=== PATIENT | female | born 1935 | race Caucasian/White ===

== ENCOUNTER → 2017-09-29 | Outpatient (CLI) | payer OTHER ==
[~2017-09-29] MED LIST: CHOL2000 PO; CYAN1TAB29 PO; DIPH25CA61 PO; ESTR1TAB15 PO; GABA100C PO; IRON PO; LEVO200T5 PO; LIOT25TA3 PO; MOME17SP INH; MULT-658 PO; OMEP-110 PO; POTASSIUM PO; SUPER B PO; TRIGOSAMINE PO; VITAMIN C PO
== END | disposition home or self-care (01) ==
LOC: CFH 12:02
PROVIDERS: ATTEND Family Medicine
DX: N63.20 Unspecified lump in the left breast, unspecified quadrant (principal); R92.8 Other abnormal and inconclusive findings on diagnostic imaging of breast
CPT/HCPCS: 77066

== ENCOUNTER → 2018-04-06 | Outpatient (CLI) | payer OTHER ==
[~2018-04-06] MED LIST changes: +OMNIPAQUE 350 MG/ML, 100ML BOTTLE ONE
== END | disposition home or self-care (01) ==
LOC: CFH 11:48
PROVIDERS: ATTEND Internal Medicine Gastroenterology
DX: K62.3 Rectal prolapse (principal); K57.30 Diverticulosis of large intestine without perforation or abscess without bleeding; K76.0 Fatty (change of) liver, not elsewhere classified
CPT/HCPCS: 74177; Q9967

== ENCOUNTER 2018-08-09 19:17 | Inpatient (IN) | payer MEDICARE, OTHER ==
[~2018-08-09] VITALS: Ht 165.1 cm; Wt 69.7 kg
[~2018-08-09 19:17] MED LIST changes: -OMNIPAQUE 350 MG/ML, 100ML BOTTLE ONE
--- NOTE | 2018-08-09 19:34 | NUR ---
PT BIB [facility] C/O SYNCOPAL EPISODE TONIGHT. MULTIPLE SYNCOPES NOTED W/ [facility] WITNESSING ONE. PT PRESENTS TO ED W/ MULTIPLE LARGE CLOTS IN PANTS AND FRESH BRIGHT RED APPEARING BLOOD PRESENT. PT CLEANED AND PLACED ON FRESH CHUX. PT STATES FEELING "A BIT LIGHT HEADED". STATES HEAD TRAUMA FROM [facility] W/ A SMALL LAC TO BACK OF HEAD. NEURO INTACT. PERRLA. VSS. BP MILDLY LOW. ALL MONITORING APPLIED. CALL LIGHT WITHIN REACH. FAMILY AT BEDSIDE.
[2018-08-09] MEDS ORDERED: SODIUM CHLORIDE 0.9% 1,000ML IVBOLUS ONE (20:00)
[2018-08-09] MEDS ORDERED: SODIUM CHLORIDE FLUSH 10ML SYR IVF ONE (20:00)
[2018-08-09] MEDS ORDERED: LIDOCAINE 1%, 10ML INFIL ONE (20:00)
[2018-08-09 20:30] LABS: BASOPHILS # (AUTO) 0.04 x10^3/uL (0-0.1); BASOPHILS % (AUTO) 0 % (0-1); EOSINOPHILS # (AUTO) 0.17 x10^3/uL (0-0.4); EOSINOPHILS % (AUTO) 2 % (1-7); LYMPHOCYTES # (AUTO) 1.14 x10^3/uL (1-3.4); LYMPHOCYTES % (AUTO) 12 % (22-44); MD NO; MEAN CORPUSCULAR HEMOGLOBIN 26.6 pg (27.0-34.8); MEAN CORPUSCULAR HGB CONC 31.7 g/dL (32.4-35.8); MEAN CORPUSCULAR VOLUME 83.9 fL (80-100); MEAN PLATELET VOLUME 7.3 fL (7.4-10.4); MONOCYTES # (AUTO) 0.88 x10^3/uL (0.2-0.8); MONOCYTES % (AUTO) 9 % (2-9); NEUTROPHILS # (AUTO) 7.59 x10^3/uL (1.8-6.8); NEUTROPHILS % (AUTO) 77 % (42-75); PLATELET COUNT 264 x10^3/uL (130-400); RED BLOOD COUNT 3.32 x10^6/uL (3.82-5.3); RED CELL DISTRIBUTION WIDTH 17.7 % (9.6-15.2)
[2018-08-09 20:38] LABS: INTERNATIONAL NORMALIZED RATIO 1.02 (0.93-1.1); PROTHROMBIN TIME 10.8 Seconds (9.6-11.5)
[2018-08-09 20:39] LABS: ALANINE AMINOTRANSFERASE 17 U/L (12-78); ANION GAP 9 mmol/L (5-15); CALCIUM 7.7 mg/dL (8.5-10.1); CHLORIDE 110 mmol/L (98-107); CREATININE 0.69 mg/dL (0.55-1.02)
[2018-08-09 20:41] LABS: ALKALINE PHOSPHATASE 63 U/L (45-117); BILIRUBIN,TOTAL 0.1 mg/dL (0.2-1.0); TOTAL PROTEIN 6.2 g/dL (6.4-8.2)
--- NOTE | 2018-08-09 21:04 | NUR ---
VITALS CONTINUE TO STAY STABLE. NADN. AWAITING RESULTS. FAMILY AT BEDSIDE. CALL LIGHT WITHIN REACH. SKIN STAPLER AT BEDSIDE PER PA REQUEST.
[2018-08-09] MEDS ORDERED: OMNIPAQUE 350 MG/ML, 100ML BOTTLE ONE (21:09)
--- NOTE | 2018-08-09 21:44 | NUR ---
PT AMB TO BEDSIDE COMMODE W/ STEADY GAIT W/ 1 PERSON ASSIST. FAMILY AT BEDSIDE. NADN. CALL LIGHT WITHIN REACH. PT UP FOR RECHECK.
--- NOTE | 2018-08-09 21:52 | NUR ---
NO NEW BLOOD NOTED ON FRESH KRISS PADS.
[2018-08-09] MEDS ORDERED: ONDANSETRON 2MG/ML, 2ML IVPush PRN (22:30)
[2018-08-09] MEDS ORDERED: SODIUM CHLORIDE 0.9% 1,000 ML IV SCH (23:02)
[2018-08-09 23:10] VITALS: BP 136/73
[2018-08-09] MEDS ORDERED: hydrALAzine 20 MG/ML, 1ML IVPush PRN (23:30)
[2018-08-09] MEDS ORDERED: LIDODERM 5% PATCH TD PRN (23:30)
[2018-08-09 23:50] LABS: MICROSCOPIC AUTO
[2018-08-09 23:51] LABS: CULTURE INDICATED? YES
[2018-08-10 01:30] VITALS: BP 127/69
[2018-08-10 07:38] VITALS: BP 132/72
[2018-08-10] MEDS ORDERED: FERROUS SULFATE 325 MG TABLET PO SCH (09:00)
[2018-08-10] MEDS: GABAPENTIN 100 MG CAPSULE PO SCH (09:34)
[2018-08-10] MEDS: ESTRADIOL 1 MG TABLET PO SCH (09:34)
[2018-08-10] MEDS: LEVOTHYROXINE 200 MCG TABLET PO SCH (09:34)
[2018-08-10] MEDS: D5%-0.45% NACL 1,000 ML IV SCH ×2 (09:35→19:58)
[2018-08-10] MEDS ORDERED: MOVIPREP POWDER 1 PREP KIT PO ONE (10:30)
[2018-08-10] MEDS: ACETAMINOPHEN 325 MG TABLET PO PRN ×2 (12:20→18:17)
[2018-08-10] MEDS: ONDANSETRON 2MG/ML, 2ML IVPush PRN ×2 (12:53→19:57)
[2018-08-10 13:09] VITALS: BP 129/74
[2018-08-10 18:45] VITALS: BP 125/69
[2018-08-11 01:39] VITALS: BP 124/85
[2018-08-11] MEDS: ACETAMINOPHEN 325 MG TABLET PO PRN ×3 (02:06→16:54)
[2018-08-11 05:31] LABS: BASOPHILS # (AUTO) 0.07 x10^3/uL (0-0.1); BASOPHILS % (AUTO) 1 % (0-1); EOSINOPHILS # (AUTO) 0.26 x10^3/uL (0-0.4); EOSINOPHILS % (AUTO) 5 % (1-7); LYMPHOCYTES # (AUTO) 0.99 x10^3/uL (1-3.4); LYMPHOCYTES % (AUTO) 19 % (22-44); MD NO; MEAN CORPUSCULAR HEMOGLOBIN 26.2 pg (27.0-34.8); MEAN CORPUSCULAR HGB CONC 31.6 g/dL (32.4-35.8); MEAN CORPUSCULAR VOLUME 83.2 fL (80-100); MEAN PLATELET VOLUME 7.8 fL (7.4-10.4); MONOCYTES # (AUTO) 0.63 x10^3/uL (0.2-0.8); MONOCYTES % (AUTO) 12 % (2-9); NEUTROPHILS # (AUTO) 3.22 x10^3/uL (1.8-6.8); NEUTROPHILS % (AUTO) 62 % (42-75); PLATELET COUNT 263 x10^3/uL (130-400); RED BLOOD COUNT 3.12 x10^6/uL (3.82-5.3); RED CELL DISTRIBUTION WIDTH 18.1 % (9.6-15.2)
[2018-08-11 05:40] LABS: ALBUMIN 2.9 g/dL (3.4-5.0); ANION GAP 6 mmol/L (5-15); CALCIUM 7.8 mg/dL (8.5-10.1); CHLORIDE 113 mmol/L (98-107); CREATININE 0.62 mg/dL (0.55-1.02)
[2018-08-11] MEDS: D5%-0.45% NACL 1,000 ML IV SCH (05:44)
[2018-08-11 07:10] VITALS: BP 126/79
[2018-08-11] MEDS ORDERED: MAGNESIUM SULFATE PMX 2GM/50ML 50 ML IV ONE (08:30)
[2018-08-11] MEDS ORDERED: LABETALOL 5MG/ML, 20ML IV PRN (09:00)
[2018-08-11] MEDS ORDERED: hydrALAzine 20 MG/ML, 1ML IV PRN (09:00)
[2018-08-11] MEDS ORDERED: PROPOFOL 10 MG/ML, 50ML ONE (10:34)
[2018-08-11] MEDS: CEFTRIAXONE PMX 1GM/50ML 50 ML IV SCH (10:45)
[2018-08-11] MEDS: SODIUM CHLORIDE 0.45% 1,000 ML IV SCH ×2 (11:49→21:30)
[2018-08-11] MEDS: ESTRADIOL 1 MG TABLET PO SCH (11:50)
[2018-08-11] MEDS: LEVOTHYROXINE 200 MCG TABLET PO SCH (11:50)
[2018-08-11] MEDS: GABAPENTIN 100 MG CAPSULE PO SCH (11:50)
[2018-08-11] MEDS: NEUTRA PHOS K 250 MG TABLET PO SCH ×3 (11:50→20:45)
[2018-08-11 14:02] VITALS: BP 129/82
[2018-08-11 18:38] VITALS: BP 102/58
[2018-08-12 00:16] VITALS: BP 110/64
[2018-08-12] MEDS: SODIUM CHLORIDE 0.45% 1,000 ML IV SCH (03:56)
[2018-08-12] MEDS: ACETAMINOPHEN 325 MG TABLET PO PRN ×3 (04:32→21:09)
[2018-08-12 05:49] LABS: BASOPHILS # (AUTO) 0.07 x10^3/uL (0-0.1); BASOPHILS % (AUTO) 1 % (0-1); EOSINOPHILS # (AUTO) 0.38 x10^3/uL (0-0.4); EOSINOPHILS % (AUTO) 7 % (1-7); LYMPHOCYTES # (AUTO) 1.16 x10^3/uL (1-3.4); LYMPHOCYTES % (AUTO) 20 % (22-44); MD NO; MEAN CORPUSCULAR HGB CONC 31.3 g/dL (32.4-35.8); MEAN CORPUSCULAR VOLUME 82.8 fL (80-100); MEAN PLATELET VOLUME 7.8 fL (7.4-10.4); MONOCYTES # (AUTO) 0.62 x10^3/uL (0.2-0.8); MONOCYTES % (AUTO) 11 % (2-9); NEUTROPHILS # (AUTO) 3.51 x10^3/uL (1.8-6.8); NEUTROPHILS % (AUTO) 61 % (42-75); PLATELET COUNT 275 x10^3/uL (130-400); RED CELL DISTRIBUTION WIDTH 17.8 % (9.6-15.2)
[2018-08-12 05:58] LABS: CHLORIDE 110 mmol/L (98-107)
[2018-08-12 06:43] LABS: ALANINE AMINOTRANSFERASE 17 U/L (12-78); ALBUMIN 2.7 g/dL (3.4-5.0); ALKALINE PHOSPHATASE 54 U/L (45-117); ANION GAP 7 mmol/L (5-15); BILIRUBIN,TOTAL 0.3 mg/dL (0.2-1.0); CALCIUM 7.7 mg/dL (8.5-10.1); CREATININE 0.53 mg/dL (0.55-1.02); FREE T4 (FREE THYROXINE) 1.14 ng/dL (0.76-1.46); THYROID STIMULATING HORMONE 0.466 mIU/L (0.358-3.740); TOTAL PROTEIN 5.9 g/dL (6.4-8.2)
[2018-08-12 07:36] VITALS: BP 121/70
[2018-08-12] MEDS: GABAPENTIN 100 MG CAPSULE PO SCH (08:35)
[2018-08-12] MEDS: LEVOTHYROXINE 200 MCG TABLET PO SCH (08:35)
[2018-08-12] MEDS: ESTRADIOL 1 MG TABLET PO SCH (08:35)
[2018-08-12] MEDS: CEFTRIAXONE PMX 1GM/50ML 50 ML IV SCH (08:37)
[2018-08-12 14:40] VITALS: BP 126/73
[2018-08-12 18:40] VITALS: BP 116/65
[2018-08-13 01:15] VITALS: BP 116/74
[2018-08-13] MEDS: ACETAMINOPHEN 325 MG TABLET PO PRN ×4 (01:54→20:10)
[2018-08-13 05:54] LABS: BASOPHILS # (AUTO) 0.07 x10^3/uL (0-0.1); BASOPHILS % (AUTO) 1 % (0-1); EOSINOPHILS # (AUTO) 0.46 x10^3/uL (0-0.4); EOSINOPHILS % (AUTO) 9 % (1-7); LYMPHOCYTES % (AUTO) 30 % (22-44); MD NO; MEAN CORPUSCULAR HEMOGLOBIN 26.5 pg (27.0-34.8); MEAN CORPUSCULAR HGB CONC 31.6 g/dL (32.4-35.8); MEAN CORPUSCULAR VOLUME 83.8 fL (80-100); MEAN PLATELET VOLUME 7.7 fL (7.4-10.4); MONOCYTES # (AUTO) 0.64 x10^3/uL (0.2-0.8); MONOCYTES % (AUTO) 13 % (2-9); NEUTROPHILS # (AUTO) 2.42 x10^3/uL (1.8-6.8); NEUTROPHILS % (AUTO) 48 % (42-75); PLATELET COUNT 277 x10^3/uL (130-400); RED BLOOD COUNT 3.17 x10^6/uL (3.82-5.3); RED CELL DISTRIBUTION WIDTH 17.9 % (9.6-15.2)
[2018-08-13 06:07] LABS: CHLORIDE 110 mmol/L (98-107)
[2018-08-13 06:26] LABS: ALBUMIN 2.6 g/dL (3.4-5.0); ANION GAP 6 mmol/L (5-15); CALCIUM 8.2 mg/dL (8.5-10.1); CREATININE 0.51 mg/dL (0.55-1.02)
[2018-08-13 07:01] VITALS: BP 134/75
[2018-08-13] MEDS: CEFTRIAXONE PMX 1GM/50ML 50 ML IV SCH (08:42)
[2018-08-13] MEDS: GABAPENTIN 100 MG CAPSULE PO SCH ×2 (08:42→22:58)
[2018-08-13] MEDS: ESTRADIOL 1 MG TABLET PO SCH (08:42)
[2018-08-13] MEDS: LEVOTHYROXINE 200 MCG TABLET PO SCH (08:42)
[2018-08-13 11:15] VITALS: BP_SYST 102; BP_SYST 126; BP_SYST 135; BP_DIAS 52; BP_DIAS 71
[2018-08-13] MEDS: SODIUM CHLORIDE 0.45% 1,000 ML IV SCH ×2 (11:24→19:53)
[2018-08-13 14:13] VITALS: BP 160/73
[2018-08-13 19:22] VITALS: BP 138/75
[2018-08-14 00:59] VITALS: BP 129/68
[2018-08-14] MEDS: SODIUM CHLORIDE 0.45% 1,000 ML IV SCH ×2 (03:08→12:16)
[2018-08-14] MEDS: LEVOTHYROXINE 200 MCG TABLET PO SCH (07:38)
[2018-08-14] MEDS: CEFTRIAXONE PMX 1GM/50ML 50 ML IV SCH (07:38)
[2018-08-14] MEDS: ESTRADIOL 1 MG TABLET PO SCH (07:38)
[2018-08-14 07:47] VITALS: BP 159/80
[2018-08-14 08:41] LABS: BASOPHILS # (AUTO) 0.05 x10^3/uL (0-0.1); BASOPHILS % (AUTO) 1 % (0-1); EOSINOPHILS # (AUTO) 0.44 x10^3/uL (0-0.4); EOSINOPHILS % (AUTO) 7 % (1-7); LYMPHOCYTES # (AUTO) 1.25 x10^3/uL (1-3.4); LYMPHOCYTES % (AUTO) 21 % (22-44); MD NO; MEAN CORPUSCULAR HEMOGLOBIN 26.5 pg (27.0-34.8); MEAN CORPUSCULAR HGB CONC 31.5 g/dL (32.4-35.8); MEAN CORPUSCULAR VOLUME 84.1 fL (80-100); MEAN PLATELET VOLUME 6.8 fL (7.4-10.4); MONOCYTES # (AUTO) 0.56 x10^3/uL (0.2-0.8); MONOCYTES % (AUTO) 9 % (2-9); NEUTROPHILS # (AUTO) 3.73 x10^3/uL (1.8-6.8); NEUTROPHILS % (AUTO) 62 % (42-75); PLATELET COUNT 339 x10^3/uL (130-400); RED BLOOD COUNT 3.62 x10^6/uL (3.82-5.3); RED CELL DISTRIBUTION WIDTH 18.3 % (9.6-15.2)
[2018-08-14 08:45] LABS: ALANINE AMINOTRANSFERASE 15 U/L (12-78); ALBUMIN 2.9 g/dL (3.4-5.0); ANION GAP 7 mmol/L (5-15); CALCIUM 8.6 mg/dL (8.5-10.1); CHLORIDE 108 mmol/L (98-107); CREATININE 0.55 mg/dL (0.55-1.02)
[2018-08-14 08:48] LABS: ALKALINE PHOSPHATASE 55 U/L (45-117); BILIRUBIN,TOTAL 0.3 mg/dL (0.2-1.0); TOTAL PROTEIN 6.5 g/dL (6.4-8.2)
[2018-08-14] MEDS: ACETAMINOPHEN 325 MG TABLET PO PRN ×2 (10:53→19:10)
[2018-08-14 12:47] VITALS: BP 146/72
[2018-08-14] MEDS ORDERED: MAGNESIUM SULFATE PMX 2GM/50ML 50 ML IV ONE (14:00)
[2018-08-14 17:45] VITALS: BP_SYST 112; BP_SYST 116; BP_SYST 123; BP_DIAS 53; BP_DIAS 69; BP_DIAS 70
[2018-08-14 19:01] VITALS: BP 136/71
[2018-08-14] MEDS: GABAPENTIN 100 MG CAPSULE PO SCH (19:14)
[2018-08-15] VITALS (10 sets, daily range): BP systolic 101–149; BP diastolic 59–78
[2018-08-15] MEDS: SODIUM CHLORIDE 0.45% 1,000 ML IV SCH ×4 (01:18→22:48)
[2018-08-15] MEDS: LEVOTHYROXINE 200 MCG TABLET PO SCH (04:30)
[2018-08-15] MEDS: ACETAMINOPHEN 325 MG TABLET PO PRN ×4 (04:39→20:40)
[2018-08-15] MEDS: ESTRADIOL 1 MG TABLET PO SCH (08:58)
[2018-08-15 09:54] LABS: BASOPHILS # (AUTO) 0.07 x10^3/uL (0-0.1); BASOPHILS % (AUTO) 1 % (0-1); EOSINOPHILS # (AUTO) 0.37 x10^3/uL (0-0.4); EOSINOPHILS % (AUTO) 7 % (1-7); LYMPHOCYTES # (AUTO) 1.14 x10^3/uL (1-3.4); LYMPHOCYTES % (AUTO) 20 % (22-44); MD NO; MEAN CORPUSCULAR HEMOGLOBIN 26.4 pg (27.0-34.8); MEAN CORPUSCULAR HGB CONC 31.5 g/dL (32.4-35.8); MEAN CORPUSCULAR VOLUME 83.9 fL (80-100); MEAN PLATELET VOLUME 7.1 fL (7.4-10.4); MONOCYTES # (AUTO) 0.45 x10^3/uL (0.2-0.8); MONOCYTES % (AUTO) 8 % (2-9); NEUTROPHILS # (AUTO) 3.57 x10^3/uL (1.8-6.8); NEUTROPHILS % (AUTO) 64 % (42-75); PLATELET COUNT 317 x10^3/uL (130-400); RED BLOOD COUNT 3.72 x10^6/uL (3.82-5.3); RED CELL DISTRIBUTION WIDTH 18.7 % (9.6-15.2)
[2018-08-15 10:06] LABS: ALBUMIN 3.1 g/dL (3.4-5.0); ANION GAP 5 mmol/L (5-15); CALCIUM 8.7 mg/dL (8.5-10.1); CHLORIDE 109 mmol/L (98-107)
[2018-08-15 10:09] LABS: ALANINE AMINOTRANSFERASE 17 U/L (12-78); ALKALINE PHOSPHATASE 59 U/L (45-117); BILIRUBIN,TOTAL 0.3 mg/dL (0.2-1.0); CREATININE 0.58 mg/dL (0.55-1.02); TOTAL PROTEIN 6.8 g/dL (6.4-8.2)
[2018-08-15] MEDS ORDERED: PANTOPROZOLE 40MG TABLET ONE (10:16)
[2018-08-15] MEDS: PANTOPROZOLE 40MG TABLET PO SCH ×2 (10:41→20:39)
[2018-08-15] MEDS ORDERED: PANT40TA5 PO (14:48)
[2018-08-15] MEDS: GABAPENTIN 100 MG CAPSULE PO SCH (20:39)
[2018-08-16 01:04] VITALS: BP 138/67
[2018-08-16] MEDS: PANTOPROZOLE 40MG TABLET PO SCH ×2 (05:28→21:26)
[2018-08-16] MEDS: LEVOTHYROXINE 200 MCG TABLET PO SCH (05:28)
[2018-08-16] MEDS: ACETAMINOPHEN 325 MG TABLET PO PRN ×4 (05:35→21:26)
[2018-08-16 07:24] VITALS: BP 118/62
[2018-08-16] MEDS: SODIUM CHLORIDE 0.45% 1,000 ML IV SCH (07:49)
[2018-08-16] MEDS: ESTRADIOL 1 MG TABLET PO SCH (07:49)
[2018-08-16 12:15] VITALS: BP 156/76
[2018-08-16 19:44] VITALS: BP 134/73
[2018-08-16] MEDS: GABAPENTIN 100 MG CAPSULE PO SCH (21:26)
[2018-08-17] MEDS ORDERED: MELATONIN 5 MG TABLET PO PRN
[2018-08-17 01:23] VITALS: BP 124/68
[2018-08-17 05:14] LABS: BASOPHILS # (AUTO) 0.06 x10^3/uL (0-0.1); BASOPHILS % (AUTO) 1 % (0-1); EOSINOPHILS # (AUTO) 0.39 x10^3/uL (0-0.4); EOSINOPHILS % (AUTO) 6 % (1-7); LYMPHOCYTES # (AUTO) 1.42 x10^3/uL (1-3.4); LYMPHOCYTES % (AUTO) 22 % (22-44); MD NO; MEAN CORPUSCULAR HEMOGLOBIN 26.6 pg (27.0-34.8); MEAN CORPUSCULAR HGB CONC 31.9 g/dL (32.4-35.8); MEAN CORPUSCULAR VOLUME 83.4 fL (80-100); MEAN PLATELET VOLUME 7.3 fL (7.4-10.4); MONOCYTES # (AUTO) 0.73 x10^3/uL (0.2-0.8); MONOCYTES % (AUTO) 11 % (2-9); NEUTROPHILS # (AUTO) 3.91 x10^3/uL (1.8-6.8); NEUTROPHILS % (AUTO) 60 % (42-75); PLATELET COUNT 343 x10^3/uL (130-400); RED BLOOD COUNT 3.61 x10^6/uL (3.82-5.3); RED CELL DISTRIBUTION WIDTH 18.3 % (9.6-15.2)
[2018-08-17 05:20] LABS: CHLORIDE 108 mmol/L (98-107)
[2018-08-17 05:28] LABS: ALANINE AMINOTRANSFERASE 20 U/L (12-78); ALBUMIN 3.1 g/dL (3.4-5.0); ALKALINE PHOSPHATASE 63 U/L (45-117); BILIRUBIN,TOTAL 0.3 mg/dL (0.2-1.0); CREATININE 0.79 mg/dL (0.55-1.02); TOTAL PROTEIN 6.7 g/dL (6.4-8.2)
[2018-08-17 05:43] LABS: ANION GAP 7 mmol/L (5-15)
[2018-08-17] MEDS: LEVOTHYROXINE 200 MCG TABLET PO SCH (06:22)
[2018-08-17] MEDS: PANTOPROZOLE 40MG TABLET PO SCH (06:22)
[2018-08-17 07:44] VITALS: BP 111/51
[2018-08-17] MEDS: ESTRADIOL 1 MG TABLET PO SCH (08:55)
[2018-08-17] MEDS: ACETAMINOPHEN 325 MG TABLET PO PRN ×2 (10:43→14:48)
[2018-08-17 11:30] VITALS: BP 116/55
[2018-08-17 11:31] VITALS: BP 116/64
[2018-08-17 11:32] VITALS: BP 102/58
[2018-08-17 13:22] VITALS: BP 108/63
== END 2018-08-17 15:27 | DRG 378 ==
LOC: ED 21:42 → EDIP 22:01 → 4WST 22:43
PROVIDERS: ADMIT Hospitalist; ATTEND Hospitalist
PROC: 0HQ0XZZ Repair Scalp Skin, External Approach (ICD-10-PCS; 2018-08-09)
PROC: 0T9B70Z Drainage of Bladder with Drainage Device, Via Natural or Artificial Opening (ICD-10-PCS; 2018-08-09)
PROC: 0W3P8ZZ Control Bleeding in Gastrointestinal Tract, Via Natural or Artificial Opening Endoscopic (ICD-10-PCS; 2018-08-11)
PROC: 0D5F8ZZ Destruction of Right Large Intestine, Via Natural or Artificial Opening Endoscopic (ICD-10-PCS; principal; 2018-08-11 09:30)
DX: K55.21 Angiodysplasia of colon with hemorrhage (principal); D62 Acute posthemorrhagic anemia; E44.1 Mild protein-calorie malnutrition; N39.0 Urinary tract infection, site not specified; S92.344A Nondisplaced fracture of fourth metatarsal bone, right foot, initial encounter for closed fracture; K57.31 Diverticulosis of large intestine without perforation or abscess with bleeding; W19.XXXA Unspecified fall, initial encounter; E03.9 Hypothyroidism, unspecified; K64.1 Second degree hemorrhoids; Z68.25 Body mass index [BMI] 25.0-25.9, adult; E86.0 Dehydration; G90.9 Disorder of the autonomic nervous system, unspecified; I25.10 Atherosclerotic heart disease of native coronary artery without angina pectoris; I65.22 Occlusion and stenosis of left carotid artery; I95.0 Idiopathic hypotension; I95.1 Orthostatic hypotension; J45.909 Unspecified asthma, uncomplicated; K21.9 Gastro-esophageal reflux disease without esophagitis; S01.91XA Laceration without foreign body of unspecified part of head, initial encounter; Z90.710 Acquired absence of both cervix and uterus; I25.2 Old myocardial infarction; Z86.010 Personal history of colon polyps; Z87.891 Personal history of nicotine dependence; Z82.49 Family history of ischemic heart disease and other diseases of the circulatory system; Y93.89 Activity, other specified; Y92.89 Other specified places as the place of occurrence of the external cause
CPT/HCPCS: 12031; 36415; 70450; 71045; 74177; 80048; 80053; 81001; 82040; 82533; 82607; 82728; 83540; 83550; 83735; 84100; 84439; 84443; 85014; 85018; 85025; 85610; 85730; 86850; 86900; 87086; 93005; 93306; 93880; 93922; 96360; G0378; J0696; J2405; J2704; Q9967; J3475; J7030

== ENCOUNTER 2019-09-20 13:37 | Outpatient (CLI) | payer MEDICARE ==
[~2019-09-20 13:37] MED LIST changes: +LIOT25TA12 PO; -LIOT25TA3 PO; +PANT40TA5 PO
== END 2019-09-20 23:59 | disposition home or self-care (01) ==
LOC: STAR 13:37
PROVIDERS: ATTEND Internal Medicine Gastroenterology
DX: Z01.818 Encounter for other preprocedural examination (principal); K92.1 Melena; K55.20 Angiodysplasia of colon without hemorrhage; K64.1 Second degree hemorrhoids; Z86.010 Personal history of colon polyps
CPT/HCPCS: 93005